=== PATIENT | male | born 1940 | race Caucasian/White ===

== ENCOUNTER 2019-12-30 14:12 | Outpatient (CLI) | payer OTHER, SELFPAY ==
--- NOTE | ~2019-12-30 | XR_ITS ---
EXAMINATION: XR lumbar spine 2-3V, XR thoracic spine 3V EXAM DATE: 12/30/2019 14:49 INDICATION: Spinal cord stimulator status. Left foot drop. TECHNIQUE: Lumber spine frontal, lateral, lateral L5-S1 projections for interpretation. Frontal and l ateral projections of the thoracic spine as well as lateral swimmers projection of the upper thoracic spine for interpretation. FINDINGS: There are 6 lumbar vertebral bodies. There is a neural stimulator with lead tips projecting up to the T7-8 interspace level. These appear intact. There is mild to moderate upper lumbar dextros coliosis. There is a screw in the L2 vertebral body. Interbody disc replacement perfusion L2-L5. Ther e is moderate disc disease T12-L1, L1-2 and L5-6. There is mild thoracic disc disease. Some bridging mid thoracic endplate osteophytes. No endplate erosive change. There is moderate lumbar facet arthrop athy. Paraspinal soft tissue is unremarkable. IMPRESSION: 1. Spine stimulator the tips at T7-8 interspace level. 2. Mild to moderate upper lumbar dextroscoliosis. 3. Six lumbar vertebral bodies. 4. Moderate lumbar spondylosis. Reviewed, dictated and finalized at location A. IMPRESSION: 1. Spine stimulator the tips at T7-8 interspace level. 2. Mild to moderate upper lumbar dextroscoliosis. 3. Six lumbar vertebral bodies. 4. Moderate lumbar spondylosis.
== END 2019-12-30 14:13 | disposition home or self-care (01) ==
LOC: CHSIMG 14:23
PROVIDERS: PCP Internal Medicine
DX: Z96.89 Presence of other specified functional implants (principal)
CPT/HCPCS: 72072; 72100

== ENCOUNTER 2020-06-23 21:29 | Emergency (ER) | payer OTHER, SELFPAY ==
--- NOTE | ~2020-06-23 | XR_ITS ---
EXAMINATION: XR chest 2V DATE: 06/23/2020 22:05 INDICATION: Left-sided midsternal chest pain TECHNIQUE: frontal and lateral views of the chest were obtained. COMPARISON: None FINDINGS: Mild hyperexpansion of lungs. There are few scattered bilateral calcified pulmonary nodules along wit h calcified right hilar and mediastinal lymph nodes consistent with old granulomatous disease. No oth er airspace opacities, pulmonary edema, pleural effusion or pneumothorax. The cardiomediastinal silho uette is normal. There is a screw extending into the L2 vertebral body. Spinal stimulator leads proje ct over the central canal of the mid thoracic spine with distal tips at the level of T8. Moderate tho racic spondylosis. Chronic mild anterior wedging at T12. IMPRESSION: 1. Mild hyperexpansion of lungs and scattered stigmata of old granulomatous disease. No acute cardiop ulmonary disease. Reviewed, dictated and finalized at location A. MBLY MACHINE TENDER IMPRESSION: 1. Mild hyperexpansion of lungs and scattered stigmata of old granulomatous dis ease. No acute cardiopulmonary disease.
--- NOTE | 2020-06-23 21:34 | ECG_ITS ---
Measurements Intervals [place] Rate: 60 P: 77 ID: [id number] QRS: -44 QRSD: 98 T: 72 QT: 398 QTc: 400 Interpretive Statements SINUS RHYTHM LEFT AXIS DEVIATION LOW QRS VOLTAGE IN PRECORDIAL LEADS INCOMPLETE RIGHT BUNDLE BRANCH BLOCK CANNOT RULE OUT SEPTAL INFARCT, AGE INDETERMINATE BASELINE ARTIFACT- I, II, III, AVR, AVF, V1-V2 ABNORMAL ECG Electronically Signed On 06-24-2020 7:06:50 VALVE MAKER by Vernon Kamara D.O.
--- NOTE | 2020-06-23 21:40 | ED.CHESTPAIN ---
HPI - Chest Pain General Chief Complaint: Chest Pain Stated Complaint: AMB Time Seen by Provider: 06/23/20 21:30 Source: patient Mode of arrival: EMS Limitations: no limitations History of Present Illness HPI narrative: 79-year-old man with a history of retention brought in today by EMS after he had a 15 minutes episodes of left-sided chest pain which was dull in nature and associated with nausea, pallor and sweating. Patient states he felt very weak and tried to get up but he was only able to lie on the floor. States discomfort as all but abated. He denies prior similar symptoms. He has had no headache, cough, sore throat, nasal congestion, fever, vomiting, diarrhea, dysuria or hematuria. records show he had a negative exercise stress test in April 2016. complaint: chest pain Onset (ago): minute(s) (45) Timing of current episode: episodic and now resolved Prior episodes: No Onset: during rest Pain location: left chest Pain radiation: back and neck Severity: severe Quality: dull Relieving factors: nothing Exacerbating factors: nothing Associated symptoms: nausea and diaphoresis Treatment prior to arrival: none Risk Factors Coronary artery disease risk factors: hypertension Related Data Home Medications Medication Instructions Recorded Confirmed methocarbamol [Robaxin-750] See Rx Instructions .ROUTE .COMPLEX 06/23/20 06/23/20 Allergies Allergy/AdvReac Type Severity Reaction Status Date / Time No Known Allergies Allergy Verified 06/23/20 21:36 Review of Systems Constitutional: Constitutional: Denies body ache(s) and Denies chills Comments: no fever Eyes: Eyes: Denies change in vision and Denies diplopia ENT: Denies otalgia, Denies nasal congestion and Denies sore throat Cardiovascular: Cardiovascular: Reports as per HPI, Reports chest pain, Denies irregular heart rhythm, Denies leg edema, Denies palpitations and Denies dyspnea on exertion Respiratory: Respiratory: Denies chest congestion, Denies cough, Denies hemoptysis and Denies dyspnea Gastrointestinal: Gastrointestinal: Denies abdominal pain, Denies melena, Denies diarrhea, Reports nausea and Denies vomiting Musculoskeletal: Musculoskeletal: Denies arthralgias and Denies joint swelling Integumentary/Breasts: Skin/Breast: Denies lesions, Denies erythema and Denies rash Neurologic: Denies syncope, Denies headache(s) and Denies focal weakness Hematologic/Lymphatic: Hematologic/Lymphatic: Denies easy bleeding and Denies easy bruising Allergic/Immunologic: Allergic/Immunologic: Denies urticaria and Denies throat swelling [facility] Past Medical History Medical History (Updated 06/23/20 @ 22:55 by Cecilio Mohr MD) Hypertension Low back pain Surgical History Surgical History (Updated 06/23/20 @ 22:55 by Cecilio Mohr MD) H/O lumbosacral spine surgery S/P insertion of spinal cord stimulator Family History Family History (Updated 04/17/16 @ 10:01 by DOCTOR UNKNOWN) Father Family history of cardiovascular disease Mother Family history of Alzheimer's disease Social History Social History (Updated 06/23/20 @ 21:51 by Cecilio Mohr MD) Smoking status: Former smoker Additional smoking assessment comments: quit 50 years ago Alcohol intake: current Drinks per week: 5 Substance use: never Living arrangements: with family Occupation/Education: retired Exam Const: General: cooperative, no acute distress, alert, awake, Physically active and acute distress mild; No ill appearing Nutritional Appearance: average body habitus Orientation/consciousness: patient oriented x3 Limitations: no limitations HENMT: Head: normal to inspection, normocephalic and atraumatic Ears: external ears normal, TM's normal bilaterally and EAC's normal General nose exam: Normal external nose present and Normal nares present Face and sinus: normal facial exam Mouth: Yes Normal oral and palatal mucosa present Throat: posteri
[2020-06-23 21:41] VITALS: BP 132/60; PULSE 68; RESP 16; TEMP 37; O2SAT 96
[2020-06-23] MEDS: ASPIRIN 81 MG CHEWABLE TABLET 324 MG PO (21:50)
[2020-06-23 21:54] LABS: Basophils Absolute Auto 0.05 K/mm3 (0.00-0.10); Basophils Percent Auto 0.9 % (0.0-1.0); Eosinophils Absolute Auto 0.08 K/mm3 (0.02-0.50); Eosinophils Percent Auto 1.5 % (1.0-6.0); Hematocrit 36.9 % (37.0-46.0); Hemoglobin 12.9 g/dL (12.4-15.3); Immature Granulocyte Absolute 0.01 K/mm3 (0.00-0.00); Immature Granulocyte Percent A 0.2 % (0.0-0.0); Lymphocytes Percent Auto 27.4 % (18.0-42.0); Mean Corpuscular Hemoglobin 33.8 pg (27.0-31.0); Mean Corpuscular Volume 96.6 fL (78.0-102.0); Mean Platelet Volume 10.1 fl (8.7-11.0); Monocytes Absolute Auto 0.56 K/mm3 (0.10-0.90); Monocytes Percent Auto 10.2 % (2.0-11.0); Neutrophils Absolute Auto 3.3 K/mm3 (1.7-7.2); Neutrophils Percent Auto 59.8 % (50.0-70.0); Platelet Count Result 202 K/mm3 (150-420); Red Blood Count 3.82 M/mm3 (4.70-6.10); Red Cell Distribution Width 12.5 % (11.6-14.4); White Blood Count 5.5 K/mm3 (4.8-10.8)
[2020-06-23 21:55] VITALS: PULSE 60
[2020-06-23 22:08] LABS: INR 0.9; Partial Thromboplastin Time 25.2 SEC (23.90-30.70); Prothrombin Time 10.4 Seconds (9.50-12.10)
[2020-06-23 22:09] LABS: BNP 49 pg/mL (0-100)
[2020-06-23 22:10] VITALS: BP 145/84; PULSE 68; RESP 16; O2SAT 97
[2020-06-23 22:14] LABS: Alanine Aminotransferase 27 U/L (16-63); Alkaline Phosphatase 57 U/L (46-116); Anion Gap 9 mmol/L (8-16); Aspartate Amino Transferase 18 U/L (15-37); Bilirubin,Total 0.3 mg/dL (0.00-1.00); Blood Urea Nitrogen 21 mg/dL (7-18); Calcium 9.6 mg/dL (8.5-10.1); Carbon Dioxide 27 mmol/L (21-32); Chloride 97 mmol/L (98-108); Estimated CRCL calculation 58 ml/min; Estimated Glomerular Filt Rate > 60; Glucose 140 mg/dL (70-99); Osmolality Calculated 281 mOsm/kg (285-295); Potassium 3.8 mmol/L (3.5-5.1); Sodium 133 mmol/L (136-145); Total Protein 6.8 g/dL (6.4-8.2)
[2020-06-23 22:34] VITALS: BP 155/87; PULSE 74; RESP 16; O2SAT 98
[2020-06-23 22:40] LABS: Troponin I 8.2 ng/L (0.00-60.4)
[2020-06-23 23:09] VITALS: BP 147/83; PULSE 61; RESP 20; TEMP 36.9; O2SAT 97
== END 2020-06-23 23:10 | disposition home or self-care (01) ==
PROVIDERS: Emergency Provider Emergency Medicine; PCP Internal Medicine
DX: R07.9 Chest pain, unspecified (principal); I10 Essential (primary) hypertension
CPT/HCPCS: 36415; 71046; 80053; 83880; 84484; 85025; 85380; 85610; 85730; 93005; 99284; A9270

== ENCOUNTER 2021-02-03 15:58 | Outpatient (CLI) | payer OTHER, SELFPAY ==
[2021-02-03 16:19] LABS: Basophils Absolute Auto 0.05 K/mm3 (0.00-0.10); Basophils Percent Auto 0.8 % (0.0-1.0); Eosinophils Absolute Auto 0.07 K/mm3 (0.02-0.50); Eosinophils Percent Auto 1.1 % (1.0-6.0); Hemoglobin 13.3 g/dL (12.4-15.3); Immature Granulocyte Absolute 0.02 K/mm3 (0.00-0.00); Immature Granulocyte Percent A 0.3 % (0.0-0.0); Lymphocytes Absolute Auto 1.25 K/mm3 (1.10-4.50); Lymphocytes Percent Auto 19.2 % (18.0-42.0); Mean Corpuscular Hemoglobin 33.3 pg (27.0-31.0); Mean Platelet Volume 10.5 fl (8.7-11.0); Monocytes Absolute Auto 0.64 K/mm3 (0.10-0.90); Monocytes Percent Auto 9.8 % (2.0-11.0); Neutrophils Absolute Auto 4.5 K/mm3 (1.7-7.2); Neutrophils Percent Auto 68.8 % (50.0-70.0); Platelet Count Result 200 K/mm3 (150-420); Red Cell Distribution Width 12.5 % (11.6-14.4); White Blood Count 6.5 K/mm3 (4.8-10.8)
[2021-02-03 16:28] LABS: CRP < 0.5 mg/dL (0.0-0.9)
[2021-02-03 17:16] LABS: Erythrocyte Sedimentation Rate 4 mm/hr (0-20)
== END 2021-02-03 15:59 | disposition home or self-care (01) ==
LOC: CHSLAB 16:03
PROVIDERS: PCP Internal Medicine
DX: Z98.890 Other specified postprocedural states (principal); Z79.2 Long term (current) use of antibiotics
CPT/HCPCS: 36415; 85025; 85652; 86140

== ENCOUNTER 2022-03-09 15:00 | Outpatient (CLI) | payer OTHER, SELFPAY ==
[2022-03-09 16:52] LABS: SARS-CoV-2 RNA PCR Positive (Negative)
== END 2022-03-09 15:01 | disposition home or self-care (01) ==
LOC: CHSLAB 15:04
PROVIDERS: PCP Internal Medicine; Visit Provider Nurse Practitioner Family
DX: U07.1 COVID-19 (principal); J06.9 Acute upper respiratory infection, unspecified
CPT/HCPCS: C9803; U0003; U0005

== ENCOUNTER 2022-06-17 05:18 | Emergency (ER) | payer OTHER, SELFPAY ==
[2022-06-17 05:33] VITALS: BP 130/90; PULSE 80; RESP 20; TEMP 37; O2SAT 96
--- NOTE | 2022-06-17 06:04 | PC.NURSE ---
encouraging fluids to get a urine sample
[2022-06-17] MEDS: CEPHALEXIN 500 MG CAPSULE PO (06:47)
--- NOTE | 2022-06-17 06:47 | ED.MALEGU ---
HPI - Male Genitourinary General Chief complaint: Urogenital-Male Stated complaint: Urinating Problems History of Present Illness HPI Narrative: Patient is 81-year-old white male with history of treated prostate cancer complains of the last month of feeling like his bladder has not completely emptied. I also complains of frequency without dysuria or hematuria. Denies any fever recent back pain. Discharge Or pain in his penis. he says he has a poor stream over the last month worse than usual. Related Data Home Medications Medication Instructions Recorded Confirmed methocarbamol 750 mg tablet See Rx Instructions .Route .COMPLEX 06/23/20 06/17/22 (Robaxin-750) lisinopril 20 mg tablet 20 mg PO DAILY 06/17/22 06/17/22 Allergies Allergy/AdvReac Type Severity Reaction Status Date / Time No Known Allergies Allergy Verified 06/23/20 21:36 Review of Systems Review of Systems: All systems reviewed & are unremarkable except as noted in HPI and below Constitutional: Constitutional: Reports no additional constitutional complaints Eyes: Eyes: Reports no additional eye complaints ENT: Reports system reviewed and no additional complaints, except as documented Cardiovascular: Cardiovascular: Reports no additional cardiovascular complaints Respiratory: Respiratory: Reports no additional respiratory complaints Gastrointestinal: Gastrointestinal: Reports no additional gastrointestinal complaints Genitourinary: Genitourinary: Reports no additional male genitourinary complaints, Reports as per HPI, Denies hematuria, Reports oliguria, Denies genital lesions, Denies dysuria, Denies penile discharge, Denies testicular pain, Reports urinary frequency and Denies urinary incontinence Musculoskeletal: Musculoskeletal: Reports no additional musculoskeletal complaints [facility] Past Medical History Medical History Hypertension Low back pain Surgical History Surgical History H/O lumbosacral spine surgery S/P insertion of spinal cord stimulator Family History Family History Father Family history of cardiovascular disease Mother Family history of Alzheimer's disease Social History Social History Smoking status: Former smoker Additional smoking assessment comments: quit 50 years ago Alcohol intake: current Drinks per week: 5 Substance use: never Exam Narrative: Patient is a elderly white male appears in no apparent distress head is normocephalic atraumatic eyes conjunctiva pink sclera nonicteric. Neck is supple no lymphadenopathy lungs are clear. Heart is regular rate and rhythm without murmurs gallops or rubs. Abdomen is soft and nontender no hepatosplenomegaly or masses his bladder does not feel distended. No CVA tenderness back is nontender. Extremities no cyanosis clubbing or edema neurological he is alert and orient x4 motor and sensory grossly intact skin is warm and dry without lesions. Course Course Emergency Course: Bladder scanner showed only 47 cc in his bladder. Patient is unable to void during his ER stay. Was discussed with the patient to go ahead today and treat him empirically for a UTI with cephalexin 500 mg 3 times a day for the next week. he was to follow up with his urologist this coming week. All questions were asked and answered and plan was discussed and agreed upon by the patient. Vital Signs Vital signs: Vital Signs Temperature 37.0 C 06/17/22 05:33 Pulse Rate 80 06/17/22 05:33 Respiratory Rate 20 06/17/22 05:33 Blood Pressure 130/90 06/17/22 05:33 Pulse Oximetry 96 06/17/22 05:33 Oxygen Delivery Room Air 06/17/22 05:33 Temperature 37.0 C 06/17/22 05:33 Pulse Rate 82 06/17/22 07:31 Respiratory Rate 18 06/17/22 07:31
[2022-06-17 07:04] LABS: Appearance Urine Clear (Clear); Bilirubin Urine Negative (Negative); Blood Urine Negative (Negative); Glucose Urine UA Negative (Negative); Ketones Urine Negative (Negative); Leukocyte Esterase Ur Negative (Negative); Nitrate Urine Negative (Negative); Protein Urine Negative (Negative); Urobilinogen Urine 0.2 mg/dL (0.2-1.0)
[2022-06-17 07:05] LABS: Add Urine Microscopic? NO; Color Urine Light Yellow (Yellow)
--- NOTE | 2022-06-17 07:21 | PC.NURSE ---
ERP having issues with computer and cannot enter discharge information. Written instructions given to Pt with Px.
[2022-06-17 07:31] VITALS: BP 132/78; PULSE 82; RESP 18; O2SAT 95
--- NOTE | 2022-06-19 13:12 | PC.NURSE ---
FINAL URINE CULTURE RESULT: NO GROWTH, NO ACTION NEEDED
== END 2022-06-17 07:33 | disposition home or self-care (01) ==
PROVIDERS: Emergency Provider Emergency Medicine; PCP Internal Medicine
DX: N39.0 Urinary tract infection, site not specified (principal); I10 Essential (primary) hypertension; Z87.891 Personal history of nicotine dependence
CPT/HCPCS: 81003; 87086; 99283; A9270

== ENCOUNTER 2023-07-20 05:28 | Emergency (ER) | payer OTHER, SELFPAY ==
--- NOTE | ~2023-07-20 | CT_ITS ---
EXAMINATION: CT abdomen pelvis wo con DATE: 07/20/2023 06:05 INDICATION: Abdominal pain. Nausea. TECHNIQUE: Computed tomography (CT) of the abdomen and pelvis was performed without intravenous contr ast. Automated exposure control and iterative reconstruction technique were employed. The dose-length product was 222.91 mGy-cm. COMPARISON: CT abdomen and pelvis 08/05/13 FINDINGS: The visualized portions of the lung bases demonstrate mild atelectasis. No pleural effusion . The heart size is normal. There are coronary artery calcifications. There is a trace pericardial ef fusion. Calcifications in the liver and spleen are consistent with old granulomatous disease. There i s a 1.7 cm cyst in the liver. The gallbladder, pancreas, adrenal glands, and kidneys are normal. Ther e is no urolithiasis. There are no dilated loops of bowel. There is a large volume of stool in the co soumya. The appendix is normal. There is calcified atherosclerosis of the aorta and many of the other ar teries. There is prominent fat in the inguinal canals that may be hernias. There is severe thoracic a nd lumbar spondylosis. There is mild chronic anterior wedging of T11 and T12 vertebral bodies. There are changes of anterior fusion procedure from L1 to L4. Thoracolumbar dextroscoliosis is noted. IMPRESSION: 1. No specific etiology for the patient's symptoms. Reviewed, dictated and finalized at location A. RATORY COURIER
--- NOTE | 2023-07-20 05:32 | ECG_ITS ---
Measurements Intervals [place] Rate: 57 P: 73 MS: 187 QRS: -47 QRSD: 98 T: 52 QT: 429 QTc: 419 Interpretive Statements SINUS BRADYCARDIA LEFT AXIS DEVIATION [QRS AXIS < -30] LOW QRS VOLTAGE IN PRECORDIAL LEADS [QRS DEFLECTION < 1.0 mV IN CHEST LEADS] POSSIBLE SEPTAL MYOCARDIAL INFARCTION , PROBABLY OLD [30 ms Q WAVE IN V1/V2] COMPARED TO ECG 06/23/2020 21:44:05 SINUS BRADYCARDIA NOW PRESENT Electronically Signed On 07-20-2023 16:25:33 MAIL WEIGHER by Dayanara Terry M.D.
--- NOTE | 2023-07-20 05:34 | ED.ABDPAIN ---
HPI - Abdominal Pain General Chief Complaint: Abdominal Pain Stated Complaint: back pain/ abd pain x 1 month Time Seen by Provider: 07/20/23 05:32 Source: patient Mode of arrival: ambulatory Limitations: no limitations History of Present Illness HPI narrative: Patient is an 82-year-old male with some mid abdominal pain which he says is diffusely around the abdomen as well as some mid back pain. MD elicited complaint: abdominal pain Pertinent past history: none Onset (ago): month(s) (1) Pain Consistency: constant Location: diffuse and epigastric Severity: mild Pain scale (0-10): 3 Quality: aching, fullness and other ( Gas like feeling) Radiation: back ( middle back) Migration to: no migration Exacerbating factors: nothing Relieving factors: nothing Associated symptoms: nausea Related Data Home Medications Medication Instructions Recorded Confirmed methocarbamol 750 mg tablet See Rx Instructions .Route .COMPLEX 06/23/20 07/20/23 (Robaxin-750) lisinopril 20 mg tablet 20 mg PO DAILY 06/17/22 07/20/23 Allergies Allergy/AdvReac Type Severity Reaction Status Date / Time No Known Allergies Allergy Verified 07/20/23 05:31 Review of Systems Review of Systems: All systems reviewed & are unremarkable except as noted in HPI and below Constitutional: Constitutional: Reports no additional constitutional complaints Eyes: Eyes: Reports no additional eye complaints ENT: Reports system reviewed and no additional complaints, except as documented Cardiovascular: Cardiovascular: Reports no additional cardiovascular complaints Respiratory: Respiratory: Reports no additional respiratory complaints Gastrointestinal: Gastrointestinal: Reports no additional gastrointestinal complaints Genitourinary: Genitourinary: Reports no additional male genitourinary complaints Musculoskeletal: Musculoskeletal: Reports no additional musculoskeletal complaints Integumentary/Breasts: Skin/Breast: Reports system reviewed and no additional complaints, except as docu Neurologic: Reports system reviewed and no additional complaints, except as documented Psychiatric: Psychiatric: Reports no additional psychiatric complaints Endocrine: Endocrine: Reports no additional endocrine complaints Hematologic/Lymphatic: Hematologic/Lymphatic: Reports no additional hematologic/lymphatic complaints Allergic/Immunologic: Allergic/Immunologic: Reports no additional allergic/immunologic complaints PMFSH Past Medical History Medical History Hypertension Low back pain Surgical History Surgical History H/O lumbosacral spine surgery S/P insertion of spinal cord stimulator Family History Family History Father Family history of cardiovascular disease Mother Family history of Alzheimer's disease Social History Social History Smoking status: Former smoker Additional smoking assessment comments: quit 50 years ago Alcohol intake: current Drinks per week: 5 Substance use: never Living arrangements: with family Occupation/Education: retired Exam Const: General: healthy appearing Nutritional Appearance: well nourished Orientation/consciousness: patient oriented x3 HENMT: Head: normal to inspection Ears: external ears normal Face/Nose/Sinus: Normal external nose present Eyes: Conjunctivae: conjunctivae normal Pupils: Equal, round and reactive pupils present EOM: EOMs intact bilaterally Neck: Neck: normal visual inspection Chest: Chest palpation & inspection: normal inspection of the chest Resp: Effort & Inspection: normal respiratory effort and not labored Auscultation: clear to auscultation bilaterally and no crackles Cardio: Rate: regular rate Rhythm: regular rhythm Heart sounds: no murmurs GI:
[2023-07-20 05:37] VITALS: BP 166/88; PULSE 55; RESP 18; TEMP 35.9; O2SAT 100
[2023-07-20 05:47] LABS: Basophils Absolute Auto 0.05 K/mm3 (0.00-0.10); Basophils Percent Auto 0.8 % (0.0-1.0); Eosinophils Absolute Auto 0.08 K/mm3 (0.02-0.50); Eosinophils Percent Auto 1.2 % (1.0-6.0); Hematocrit 41.2 % (37.0-46.0); Hemoglobin 14.1 g/dL (12.4-15.3); Immature Granulocyte Absolute 0.02 K/mm3 (0.00-0.00); Immature Granulocyte Percent A 0.3 % (0.0-0.0); Lymphocytes Absolute Auto 1.43 K/mm3 (1.10-4.50); Lymphocytes Percent Auto 21.7 % (18.0-42.0); Mean Corpuscular HGB Conc 34.2 g/dL (32.0-36.0); Mean Corpuscular Hemoglobin 33.2 pg (27.0-31.0); Mean Corpuscular Volume 96.9 fL (78.0-102.0); Mean Platelet Volume 9.6 fl (8.7-11.0); Monocytes Absolute Auto 0.67 K/mm3 (0.10-0.90); Monocytes Percent Auto 10.2 % (2.0-11.0); Neutrophils Absolute Auto 4.3 K/mm3 (1.7-7.2); Neutrophils Percent Auto 65.8 % (50.0-70.0); Platelet Count Result 221 K/mm3 (150-420); Red Blood Count 4.25 M/mm3 (4.70-6.10); Red Cell Distribution Width 12.7 % (11.6-14.4); White Blood Count 6.6 K/mm3 (4.8-10.8)
[2023-07-20 06:02] LABS: Partial Thromboplastin Time 27.9 SEC (23.90-30.70); Prothrombin Time 10.6 Seconds (9.50-12.10)
[2023-07-20 06:13] LABS: Lactic Acid Reflex 0.8 mmol/L (0.4-2.0)
[2023-07-20 06:14] LABS: Alanine Aminotransferase 26 U/L (16-63); Albumin Level 4.1 g/dL (3.4-5.0); Alkaline Phosphatase 57 U/L (46-116); Anion Gap 6 mmol/L (8-16); Aspartate Amino Transferase 21 U/L (15-37); Bilirubin,Total 0.5 mg/dL (0.00-1.00); Blood Urea Nitrogen 19 mg/dL (7-18); Calcium 9.3 mg/dL (8.5-10.1); Carbon Dioxide 31 mmol/L (21-32); Chloride 95 mmol/L (98-108); Estimated Glomerular Filt Rate > 60; Glucose 106 mg/dL (70-99); Lipase 34 U/L (16-77); NT Pro B Type Natriuretic Pept 182 pg/mL (0-450); Osmolality Calculated 276 mOsm/kg (285-295); Potassium 4.3 mmol/L (3.5-5.1); Sodium 132 mmol/L (136-145); Total Protein 6.9 g/dL (6.4-8.2); Troponin I 9.7 ng/L (0.00-60.4)
[2023-07-20 06:44] LABS: Appearance Urine Clear (Clear); Bilirubin Urine Negative (Negative); Blood Urine Negative (Negative); Color Urine Yellow (Yellow); Glucose Urine UA Negative (Negative); Ketones Urine Trace (Negative); Leukocyte Esterase Ur Negative LEU/UL (Negative); Nitrate Urine Negative (Negative); Protein Urine Negative (Negative); Urobilinogen Urine 0.2 mg/dL (0.2-1.0)
[2023-07-20 06:49] LABS: Add Urine Microscopic? YES; Bacteria Urine Rare /hpf; RBC Urine None seen /hpf (0-2); WBC Urine None seen /hpf (0-3)
== END 2023-07-20 07:03 | disposition home or self-care (01) ==
PROVIDERS: Emergency Provider Emergency Medicine; PCP Internal Medicine
DX: R10.84 Generalized abdominal pain (principal); I10 Essential (primary) hypertension; Z79.899 Other long term (current) drug therapy; Z87.891 Personal history of nicotine dependence
CPT/HCPCS: 36415; 74176; 80053; 81001; 83605; 83690; 83880; 84484; 85025; 85610; 85730; 93005; 99284

== ENCOUNTER 2024-02-23 10:55 | Emergency (ER) | payer OTHER, SELFPAY ==
[2024-02-23] VITALS (40 sets, daily range): BP systolic 95–136; BP diastolic 66–110; PULSE 73–145; RESP 16–27; TEMP 36.4–36.6; O2SAT 93–100
--- NOTE | ~2024-02-23 | XR_ITS ---
EXAMINATION: XR chest 1V portable DATE: 02/23/2024 11:26 INDICATION: Lightheadedness. Atrial fibrillation. TECHNIQUE: A single frontal view of the chest was obtained. COMPARISON: Chest 2 views 06/23/2020, CT abdomen and pelvis 07/20/2023 FINDINGS: Calcified pulmonary nodules and calcified hilar and mediastinal lymph nodes are consistent with old granulomatous disease. There is mild atelectasis at left lung base. No pleural effusion or p neumothorax. The heart size is normal. IMPRESSION: 1. Mild atelectasis at left lung base. Reviewed, dictated and finalized at location A.
--- NOTE | 2024-02-23 11:02 | ED.DIZZY ---
HPI - Dizziness General Chief Complaint: Dizziness Stated Complaint: light headed, nausea Time Seen by Provider: 02/23/24 11:02 Source: patient Mode of arrival: ambulatory Limitations: no limitations History of Present Illness HPI Narrative: 83-year-old male with a history of chronic low back pain presents to the ED with a 2 hour history of\ -- dizziness. he feels lightheaded. No focal neuro deficits. -- Shortness of breath. No cough or sputum production. No fever Negative stress test in 2016. MD elicited complaint: lightheadedness Onset (ago): hour(s) ( 2 hours) Timing: sudden onset Severity: mild Description: lightheadedness Exacerbating factors: nothing Relieving factors: nothing Associated symptoms: shortness of breath Related Data Home Medications Medication Instructions Recorded Confirmed lisinopril 20 mg tablet 20 mg PO DAILY 06/17/22 02/23/24 Allergies Allergy/AdvReac Type Severity Reaction Status Date / Time No Known Allergies Allergy Verified 02/23/24 10:56 Review of Systems Review of Systems: All systems reviewed & are unremarkable except as noted in HPI and below Constitutional: Constitutional: Reports as per HPI and Reports no additional constitutional complaints Eyes: Eyes: Reports as per HPI and Reports no additional eye complaints ENT: Reports system reviewed and no additional complaints, except as documented and Reports as per HPI Cardiovascular: Cardiovascular: Reports as per HPI and Reports no additional cardiovascular complaints Respiratory: Respiratory: Reports as per HPI, Reports no additional respiratory complaints and Reports dyspnea Gastrointestinal: Gastrointestinal: Reports as per HPI and Reports no additional gastrointestinal complaints Genitourinary: Genitourinary: Reports no additional male genitourinary complaints Musculoskeletal: Musculoskeletal: Reports no additional musculoskeletal complaints and Reports as per HPI Integumentary/Breasts: Skin/Breast: Reports system reviewed and no additional complaints, except as docu and Reports as per HPI Neurologic: Reports system reviewed and no additional complaints, except as documented, Reports as per HPI and Reports dizziness Psychiatric: Psychiatric: Reports no additional psychiatric complaints and Reports as per HPI Endocrine: Endocrine: Reports no additional endocrine complaints and Reports as per HPI Hematologic/Lymphatic: Hematologic/Lymphatic: Reports no additional hematologic/lymphatic complaints and Reports as per HPI Allergic/Immunologic: Allergic/Immunologic: Reports no additional allergic/immunologic complaints and Reports as per HPI [facility] Past Medical History Medical History Hypertension Low back pain Surgical History Surgical History H/O lumbosacral spine surgery S/P insertion of spinal cord stimulator Family History Family History Father Family history of cardiovascular disease Mother Family history of Alzheimer's disease Social History Social History Smoking status: Former smoker Additional smoking assessment comments: quit 50 years ago Alcohol intake: current Drinks per week: 5 Substance use: never Living arrangements: with family Occupation/Education: retired Exam Narrative: tachycardic with a heart rate of 140. Blood pressure is stable Const: General: no acute distress Nutritional Appearance: thin Orientation/consciousness: patient oriented x3 Limitations: no limitations HENMT: Head: normal to inspection Face/Nose/Sinus: Normal external nose present Face and sinus: normal facial exam Mouth: Yes Normal oral and palatal mucosa present Throat: posterior oropharynx normal Eyes: Conjunctivae: conjunctivae normal Pupils: Equal, round a
--- NOTE | 2024-02-23 11:22 | ECG_ITS ---
Test Date: 2024-02-23 11:35:16 Measurements Intervals [place] Rate: 81 P: 0 [place]: 0 QRS: -56 QRSD: 93 T: 56 QT: 374 QTc: 437 Interpretive Statements ATRIAL FIBRILLATION LOW QRS VOLTAGE IN PRECORDIAL LEADS [QRS DEFLECTION < 1.0 mV IN CHEST LEADS] INCOMPLETE RIGHT BUNDLE BRANCH BLOCK [90+ ms QRS DURATION, TERMINAL R IN V1/V2, 40+ ms S IN I/aVL/V4/V5/V6] LEFTWARD AXIS ABNORMAL ECG No previous ECG available for comparison Electronically Signed On 02-24-2024 09:11:21 CDT by Mckay Liang M.D.
[2024-02-23] MEDS: dilTIAZem HCl INJ 25 MG/5 ML VIAL 10 MG IV PUSH (11:28)
[2024-02-23 12:20] LABS: Basophils Absolute Auto 0.05 K/mm3 (0.00-0.10); Basophils Percent Auto 0.7 % (0.0-1.0); Eosinophils Absolute Auto 0.05 K/mm3 (0.02-0.50); Eosinophils Percent Auto 0.7 % (1.0-6.0); Hematocrit 41.3 % (37.0-46.0); Immature Granulocyte Absolute 0.02 K/mm3 (0.00-0.00); Immature Granulocyte Percent A 0.3 % (0.0-0.0); Lymphocytes Absolute Auto 0.92 K/mm3 (1.10-4.50); Lymphocytes Percent Auto 13.5 % (18.0-42.0); Mean Corpuscular HGB Conc 33.9 g/dL (32-36); Mean Corpuscular Hemoglobin 32.3 pg (27.0-31.0); Mean Corpuscular Volume 95.2 fL (78.0-102.0); Mean Platelet Volume 10.8 fl (8.7-11.0); Monocytes Absolute Auto 0.62 K/mm3 (0.10-0.90); Monocytes Percent Auto 9.1 % (2.0-11.0); Neutrophils Absolute Auto 5.15 K/mm3 (1.70-7.20); Neutrophils Percent Auto 75.7 % (50.0-70.0); Platelet Count Result 214 K/mm3 (150-420); Red Blood Count 4.34 M/mm3 (4.70-6.10); Red Cell Distribution Width 13.3 % (11.6-14.4); White Blood Count 6.8 K/mm3 (4.8-10.8)
[2024-02-23 12:35] LABS: Lactic Acid Reflex 1.5 mmol/L (0.4-2.0)
[2024-02-23 12:37] LABS: D Dimer 0.23 mg/L (0.19-0.50); INR 0.9; Partial Thromboplastin Time 26.2 Sec (23.9-30.70); Prothrombin Time 10.4 Seconds (9.50-12.1)
[2024-02-23 12:38] LABS: Alanine Aminotransferase 15 U/L (16-63); Albumin Level 3.7 g/dL (3.4-5.0); Alkaline Phosphatase 54 U/L (46-116); Anion Gap 10 mmol/L (4-12); Aspartate Amino Transferase 19 U/L (15-37); Bilirubin,Total 0.4 mg/dL (0.00-1.00); Blood Urea Nitrogen 19 mg/dL (7-18); Calcium 9.2 mg/dL (8.5-10.1); Carbon Dioxide 27 mmol/L (21-32); Chloride 99 mmol/L (98-108); Estimated CRCL calculation 54 ml/min; Estimated Glomerular Filt Rate > 60; Glucose 123 mg/dL (70-99); Lipase 41 U/L (16-77); NT Pro B Type Natriuretic Pept 423 pg/mL (0-450); Osmolality Calculated 285 mOsm/kg (285-295); Potassium 3.9 mmol/L (3.5-5.1); Sodium 136 mmol/L (136-145); Thyroid Stimulating Hormone 1.66 uIU/mL (0.36-3.74); Total Protein 6.7 g/dL (6.4-8.2); Troponin I 18.6 ng/L (0.00-60.4)
[2024-02-23 12:41] LABS: Bilirubin Urine Negative (Negative); Blood Urine Negative (Negative); Color Urine Light Yellow (Yellow); Glucose Urine UA Negative (Negative); Ketones Urine Negative (Negative); Leukocyte Esterase Ur Negative LEU/UL (Negative); Nitrate Urine Negative (Negative); Protein Urine Negative (Negative); Specific Grav Ur 1.015 (1.010-1.020); Urobilinogen Urine 0.2 mg/dL (0.2-1.0)
[2024-02-23 12:45] LABS: Add Urine Microscopic? NO; Appearance Urine Clear (Clear)
[2024-02-23 13:11] LABS: Influenza A QL RT-PCR Negative (Negative); Influenza B QL RT-PCR Negative (Negative); RSV RNA, RT-PCR Negative (Negative); SARS-CoV-2 RNA PCR Negative (Negative)
[2024-02-23] MEDS: AMIODARONE 150 MG/D5W 100 ML 150 MG/100 ML BAG 600 MG IV CONT (13:23)
== END 2024-02-23 15:00 | disposition short-term general hospital (02) ==
PROVIDERS: Emergency Provider Internal Medicine Critical Care Medicine; PCP Internal Medicine
DX: I48.91 Unspecified atrial fibrillation (principal); I10 Essential (primary) hypertension; Z87.891 Personal history of nicotine dependence; Z20.822 Contact with and (suspected) exposure to COVID-19
CPT/HCPCS: 36415; 71045; 80053; 81003; 83605; 83690; 83880; 84443; 84484; 85025; 85380; 85610; 85730; 87637; 93005; 96374; 96375; 99285; J0282

== ENCOUNTER 2024-02-23 15:30 | Observation (INO) | payer OTHER, SELFPAY ==
[2024-02-23] VITALS (7 sets, daily range): BP systolic 119–120; BP diastolic 56–57; PULSE 53–106; RESP 16–20; TEMP 36.3–37; O2SAT 98–99; BMI 20.5
--- NOTE | 2024-02-23 15:43 | ADMGEN ---
This patient, Mitch Stockton, was admitted to IMU Room 212-01. Patient/family oriented to hospital policies and general routines including ID bracelet, bed and alarms, visiting hours, pain management, procedures, bathroom and other care routines, personal items, smoking policy, room service/diet, and visiting hours. Information on how to activate the Rapid Response Team has been discussed. Patient/Family are encouraged to report perceived risks to care and to ask questions if they do not understand what they are told or what they should do.
--- NOTE | 2024-02-23 16:07 | ECG_ITS ---
Test Date: 2024-02-23 17:24:05 Measurements Intervals [place] Rate: 56 P: 60 OK: 202 QRS: -54 QRSD: 93 T: 57 QT: 406 QTc: 394 Interpretive Statements SINUS BRADYCARDIA INCOMPLETE RIGHT BUNDLE BRANCH BLOCK [90+ ms QRS DURATION, TERMINAL R IN V1/V2, 40+ ms S IN I/aVL/V4/V5/V6] LEFT ANTERIOR FASCICULAR BLOCK [QRS AXIS <= -45, QR IN I, RS IN II] ABNORMAL ECG WARNING: DATA QUALITY MAY AFFECT INTERPRETATION Compared to ECG 02/23/2024 11:35:16 SINUS RHYTHM REPLACES ATRIAL FIBRILLATION Electronically Signed On 02-24-2024 08:58:22 CDT by Mckay Liang M.D.
--- NOTE | 2024-02-23 17:26 | PM.IMHP ---
H&P: HPI History of Present Illness Date/Time: 02/23/24 17:26 Chief Complaint: New onset AFib Narrative: 83-year-old male with a PMHx: HTN, chronic back pain, is a direct admit from [facility]. Patient presented to OT with c/o, an episode of dizziness and weakness lasting for more than 2 hours, patient reports he was with family when he experienced an episode of where he felt lightheaded and dizziness, he describes his dizziness as the room was spinning, with mild sob, he denies any balance issues or falls, he is able to recall the event. He denies any fever, chills, n/v. Mr Stockton denies any chest pain associated with this episode. He admits he has HTN but has not taken medication for it, due to low blood pressure readings. He also reports a remote hx of thyroid issues and medication use, that has since been discontinued because he was told by his dr. that his numbers improved and he no longer needed medication. He admits he has not seen a pai gow manager since 2016, when he had a stress test completed that was negative. ED Work-up reveals: 97.5, HR 124, RR 22, BP 114/92, SpO2 97%, UA is unremarkable, viral PCR is negative, initially patient was given 10 mg Cardizem, rate not controlled his heart rate continued in the 140s-150s, then patient was given 150 mg amiodarone bolus, rate was controlled, patient still in atrial fibrillation. Chest x-ray revealed mild atelectasis at left lung base. EKG, atrial fibrillation [facility] Past Medical History Medical History Hypertension Low back pain Surgical History Surgical History H/O lumbosacral spine surgery S/P insertion of spinal cord stimulator Family History Family History Father Family history of cardiovascular disease Mother Family history of Alzheimer's disease Social History Social History Smoking packs per day: 1 Smoking cigarettes per day: 20.0 Years smoked: 10 Smoking pack-years: 10.00 Smoking status: Former smoker Additional smoking assessment comments: quit 50 years ago Alcohol intake: current Drinks per week: 4 Substance use: never Do You Feel Safe in your Home?: No Lack of Transportation: No Lack of Food: Never True Current Housing: I Have Housing Concerned About Future Housing: No Difficulty Paying Gas/Electric Bills: No Difficulty Paying for Meds: No Currently Unemployed: No Education: High School Diploma/GED Difficulty w/ Childcare or Family Care: No Living arrangements: with family Occupation/Education: retired Spiritual care concerns: No Meds Home Medications and Allergies Home Medications Medication Instructions Recorded Confirmed Type acetaminophen 500 mg tablet 500 mg PO Q6H PRN Pain (Scale 02/23/24 02/23/24 History Score 1-3) coQ10 (ubiquinol) 100 mg capsule 100 mg PO DAILY 02/23/24 02/23/24 History multivit with minerals-iron 18 1 tablet PO DAILY 02/23/24 02/23/24 History mg-folic ac 400 mcg-vit K 25 mcg tablet (Adults Multivitamin) Allergies Allergy/AdvReac Type Severity Reaction Status Date / Time No Known Allergies Allergy Verified 02/23/24 10:56 Vital Signs Vital Signs - 24 hr 02/23/24 15:45 02/23/24 15:51 Temperature 98.6 F Pulse Rate 90 Respiratory Rate 16 Blood Pressure 119/56 L Pulse Oximetry 99 Oxygen Delivery Room Air Exam Narrative: General: A well-developed, nontoxic-appearing gentlemen, sitting up in bed. HEENT: PERRL, EOMI. Oral mucosa moist. Neck: Supple. No midline cervical tenderness. Respiratory: Respirations are non- labored and lungs are clear to auscultation bilaterally. Cardiovascular: Regular rate and rhythm with S1-S2. Gastrointestinal: Abdomen is soft, non-tender, and non-distended with
[2024-02-23 18:42] LABS: Troponin I 0.029 ng/mL (0.000-0.034)
--- NOTE | 2024-02-23 18:55 | PC.NURSE ---
Pt. received from [facility] at 1853 via wheelchair.
--- NOTE | 2024-02-23 19:01 | PC.NURSE ---
This patient, Mitch Stockton, was transferred to [[id number] ] on 02/23/24 at 1855. Personal belongings sent with patient. Report given to [RN ]. Appropriate documentation sent with patient.
[2024-02-24] VITALS (14 sets, daily range): BP systolic 108–169; BP diastolic 49–77; PULSE 45–78; RESP 16–20; TEMP 36–36.4; O2SAT 94–99
[2024-02-24] MEDS: ACETAMINOPHEN 500 MG TABLET PO (02:57)
[2024-02-24 06:22] LABS: Alanine Aminotransferase 15 U/L (6-50); Albumin Level 3.6 g/dL (3.5-5.1); Alkaline Phosphatase 40 U/L (38-126); Anion Gap 7 mmol/L (4-12); Aspartate Amino Transferase 24 U/L (17-59); Bilirubin,Total 0.4 mg/dL (0.2-1.3); Blood Urea Nitrogen 20 mg/dL (9-20); Carbon Dioxide 23 mmol/L (22-30); Chloride 102 mmol/L (98-107); Cholesterol 153 mg/dL (0-200); Estimated CRCL calculation 70 ml/min; Estimated Glomerular Filt Rate > 60; Glucose 93 mg/dL (65-110); HDL Direct 57 mg/dL; Potassium 3.7 mmol/L (3.4-5.0); Sodium 132 mmol/L (137-145); Triglycerides 93 mg/dL (<150)
[2024-02-24 06:32] LABS: LDL Cholesterol Direct 71 mg/dL
--- NOTE | 2024-02-24 13:49 | WPDPN ---
Progress Note: A&P Assessment and Plan (1) New onset a-fib: Code(s): I48.91 - Unspecified atrial fibrillation Status: Inactive Assessment and Plan: -given 10 mg Cardizem, with no improvement -received 150 mg amiodarone bolus -arrive to [place] patient converted to normal sinus rhythm with a rate of 59-60 -troponin negative -downgrade to med-tele -repeat EKG PRN for any chest pain or SOB, dizziness -continue telemetry monitoring -monitor vitals q4 hr -check echocardiogram in the a.m. or when available -start metoprolol 12.5 p.o. q.12 (b/p) on lower side, change to sustained release prior to discharge -start Xarelto CHADS2=2 -may consider cardiovascular consult pending echocardiogram results (2) Hypertension: Code(s): I10 - Essential (primary) hypertension Status: Acute Assessment and Plan: -remote hx -pt reports not taking lisinopril for >2 years -continue to monitor b/p: q.4 hours Plan Continue home medications: No home medications reported VTE Prophylaxis: Xarelto p.o. DIET: Heart healthy Anticipated hospital stay: > 2 days Code Status: Full code 02/24/2024 interval history: patient is 83 y/o male with dementia and poor historian who apparently has not been taking his medication for sometime presented to outside hospital ER with complaints of dizziness and was found to have A. fib RVR, no details weather this is new onset or recurrent. patient was initially treated with 10 mg of Cardizem which did not improve the rate so patient was given 150mg of Amiodarone which did not convert the patient but trended down, currently patient is on Metoprolol 12.5mg BID PO and rate is in low 50s, and anti coagulated with xarelto, patient stats he is feeling better and wants to go home. will monitor patient, follow up on cardiac echo and consult wagon driver for further recommendation. Subjective Date/time seen: 02/24/24 13:49 Interval history: 02/24/2024 interval history: patient is 83 y/o male with dementia and poor historian who apparently has not been taking his medication for sometime presented to outside hospital ER with complaints of dizziness and was found to have A. fib RVR, no details weather this is new onset or recurrent. patient was initially treated with 10 mg of Cardizem which did not improve the rate so patient was given 150mg of Amiodarone which did not convert the patient but trended down, currently patient is on Metoprolol 12.5mg BID PO and rate is in low 50s, and anti coagulated with xarelto, patient stats he is feeling better and wants to go home. will monitor patient, follow up on cardiac echo and consult wagon driver for further recommendation. Review of Systems Constitutional: Constitutional: Reports no additional constitutional complaints Exam Narrative: Elderly frail Patient is comfortable, NAD HEENT: eyes are clear and none icteric LUNGS:CTA HEART: Irregularly irregular ABD: BS+, Soft and nontender Lower extremities: no edema SKIN: nonjaundiced Neuro: grossly intact. Objective Data Vital Signs Vital Signs: Vital Signs - 24 hr 02/23/24 15:45 02/23/24 15:51 02/23/24 15:44 Temperature 37.0 C Pulse Rate 90 106 H Respiratory Rate 16 Blood Pressure 119/56 L Pulse Oximetry 99 Oxygen Delivery Room Air 02/23/24 16:00 02/23/24 16:05 02/23/24 20:52 Temperature 36.3 C L Pulse Rate 105 H 75 56 L Respiratory Rate 20 Blood Pressure 120/57 L Pulse Oximetry 98 Oxygen Delivery 02/23/24 20:00 02/23/24 23:12 02/23/24 20:00 Temperature Pulse Rate 53 L 59 L Respiratory Rate Blood Pressure Pulse Oximetry Oxygen Delivery Room Air 02/24/24 00:00 02/24/24 04:00 02/24/24 05:57 Temperature 36.0 C L Pulse Rate 46 L 45 L 51 L Respiratory Rate 16 Blood Pressure 108/49 L Pulse Oximetry 94 Oxygen Delivery 02/24/24 09:29 Temperature Pulse Rate 52 L Respiratory Rate Blood Pressure Pulse Oxi
--- NOTE | 2024-02-24 13:51 | PM.CNCAR ---
Assessment and Plan Assessment and plan (1) Atrial fibrillation: Code(s): I48.91 - Unspecified atrial fibrillation Status: Acute Plan This is an 83-year-old man presenting with asymptomatic atrial fibrillation of new onset to the emergency room up in [place] last evening. He was converted to sinus rhythm with a bolus of amiodarone and since then has been asymptomatic. No previous cardiac history that he provides. No history of coronary disease and previous infarction. Discussed with the patient the need to discuss medication for his atrial fibrillation as well as anticoagulation. I will start Xarelto 20 mg daily as well as flecainide. I am choosing flecainide as he tends to be a bit bradycardic when in sinus rhythm and I suspect that a beta-evelina such as sotalol would not be well tolerated. An echocardiogram has already been appropriately ordered by the hospitalist. As you know the boarding machine operator is not in the hospital on Sunday and so that scan will not be done until tomorrow. We will review how he is doing tomorrow and his echo results and hopefully he can be discharged for outpatient follow-up at that time Mckay Liang MD [facility] History of Present Illness History of Present Illness Consult date/time: 02/24/24 13:51 Reason For Visit: a fib with rvr Narrative: This is an 83-year-old man I am seeing with the request of the hospitalist because of atrial fibrillation. Patient is unknown to me prior to this consultation today. Is a very pleasant gentleman who states he has a paucity of general medical problems. He came to the emergency room in [place] last evening because of the onset of palpitations at home a short time before that. He noticed the onset of tachycardia and erratically beating of his heart. He has a blood pressure cuff that he was using and states that his pulse rate was at times as fast as 150 beats per minute and so he became concerned and went to the emergency department. In the ED at says he was found to be in AFib with RVR. According to the notes it looks like he was given some intravenous diltiazem and then some intravenous amiodarone in a loading dose of 150 mg was given after which he converted to sinus rhythm and became asymptomatic. He was transferred [facility] for further evaluation management. He is resting comfortably in his bed in room 329 and offers no other complaints. A gentleman that says a than at his advanced age he leads a fairly active lifestyle caring for his own home. He is and does not have any exertional symptoms such as shortness of breath chest pain he has never had a syncopal episode. The patient states that he had been told in the past that he had some sort of thyroid function abnormality and for a while was on medication for that which was withdrawn by his physician. I do not have any records that speak to any of that per my personal review at this time. Review of Systems Constitutional: Constitutional: Reports no additional constitutional complaints Eyes: Eyes: Reports no additional eye complaints ENT: Reports system reviewed and no additional complaints, except as documented Cardiovascular: Cardiovascular: Reports palpitations Respiratory: Respiratory: Reports no additional respiratory complaints Gastrointestinal: Gastrointestinal: Reports no additional gastrointestinal complaints Musculoskeletal: Musculoskeletal: Reports no additional musculoskeletal complaints Integumentary/Breasts: Skin/Breast: Reports system reviewed and no additional complaints, except as docu Neurologic: Reports system reviewed and no additional complaints, except as documented Endocrine: Endocrine: Reports no additional endocrine complaints Hematologic/Lymphatic: Hematologic/Lymphatic: Reports no additional hematologic/lymphatic complaints Allergic/Immunologic: Allergic/Immunologic: Reports no additional allergic/immunologic complaints PMFSH Past Medical Histor
[2024-02-24] MEDS: RIVAROXABAN 20 MG TABLET PO (17:54)
[2024-02-24] MEDS: FLECAINIDE ACETATE 100 MG TABLET PO (20:36)
[2024-02-24] MEDS: METOPROLOL TARTRATE 12.5 MG TABLET PO (20:36)
[2024-02-25] VITALS (11 sets, daily range): BP systolic 122–150; BP diastolic 51–70; PULSE 44–59; RESP 16–20; TEMP 36.4–36.6; O2SAT 96–98
[2024-02-25 05:59] LABS: Hematocrit 37.2 % (42.0-52.0); Mean Corpuscular HGB Conc 34.9 g/dl (32-36); Mean Corpuscular Volume 97.4 fl (80-100); Mean Platelet Volume 10.7 fl (7.4-10.4); Platelet Count Result 193 k/mm3 (150-375); Red Blood Count 3.82 M/mm3 (4.6-6.20); Red Cell Distribution Width 13.4 % (11.5-14.5); White Blood Count 6.3 K/mm3 (4.5-10.0)
[2024-02-25 06:12] LABS: Alanine Aminotransferase 16 U/L (6-50); Albumin Level 3.8 g/dL (3.5-5.1); Alkaline Phosphatase 44 U/L (38-126); Anion Gap 9 mmol/L (4-12); Aspartate Amino Transferase 26 U/L (17-59); Bilirubin,Total 0.5 mg/dL (0.2-1.3); Blood Urea Nitrogen 15 mg/dL (9-20); Carbon Dioxide 23 mmol/L (22-30); Chloride 99 mmol/L (98-107); Estimated CRCL calculation 69 ml/min; Estimated Glomerular Filt Rate > 60; Glucose 87 mg/dL (65-110); Magnesium 1.8 mg/dL (1.6-2.3); Potassium 3.8 mmol/L (3.4-5.0); Sodium 131 mmol/L (137-145)
--- NOTE | 2024-02-25 11:42 | PCPTNOTE ---
On 02/25/24, the student, [Neha Merida], provided care and completed [facility] documentation on this patient. I have reviewed the student's documentation and agree with the findings.
--- NOTE | 2024-02-25 14:39 | PM.PNCARD ---
Progress Note: A&P Assessment and Plan (1) Atrial fibrillation: Code(s): I48.91 - Unspecified atrial fibrillation Status: Acute Plan 83-year-old man with paroxysmal atrial fibrillation been started on flecainide and Xarelto yesterday. He is maintaining sinus rhythm. He does tend to be bradycardic. His echocardiogram does not show any significant structural abnormalities. I am going to stop the low-dose metoprolol because of the bradycardia reduce the flecainide 50 mg q.12 hours. He can be discharged today from my perspective. I will see him in the office for about 1 month follow-up. Patient wishes to see me in my [place] location, I will make those arrangements Mckay Liang MD [facility] Subjective Date/time seen: Date of service: 02/25/24 14:39 Interval history: Follow-up visit in this 83-year-old man with atrial fibrillation of new onset. Patient converted to sinus rhythm after being treated in the ER. Started on flecainide and Xarelto yesterday. Today he feels well and offers no complaints. Hoping to be discharged. Telemetry shows sinus bradycardia. Exam Const: General: comfortable and no acute distress Other: Pleasant elderly man no distress HENMT: Mouth: Yes moist mucous membranes Eyes: Sclera: sclerae normal Neck: Neck: supple and no JVD Resp: Effort & Inspection: normal respiratory effort Auscultation: clear to auscultation bilaterally Cardio: Rate: bradycardic Rhythm: regular rhythm GI: GI Palp: Yes Soft to palpation Auscultation: normal bowel sounds Skin: General skin exam: normal color Neuro: Other: Alert and oriented times Extrem: General: normal to inspection Other: Unremarkable Objective Data Vital Signs Vital Signs: Vital Signs - 24 hr 02/24/24 16:00 02/24/24 20:36 02/24/24 20:36 Temperature Pulse Rate 58 L 56 L 56 L Respiratory Rate Blood Pressure Pulse Oximetry Oxygen Delivery 02/24/24 21:07 02/24/24 20:00 02/25/24 00:00 Temperature 36.4 C Pulse Rate 62 57 L 47 L Respiratory Rate 20 Blood Pressure 169/77 H Pulse Oximetry 98 Oxygen Delivery 02/25/24 04:00 02/25/24 05:50 02/25/24 08:55 Temperature 36.4 C L Pulse Rate 44 L 54 L Respiratory Rate 18 Blood Pressure 122/51 L Pulse Oximetry 98 Oxygen Delivery Room Air 02/25/24 09:36 02/25/24 09:37 02/25/24 10:25 Temperature 36.6 C Pulse Rate 50 L 50 L 50 L Respiratory Rate 16 Blood Pressure 150/60 H Pulse Oximetry 98 Oxygen Delivery 02/25/24 10:26 02/25/24 10:26 02/25/24 14:00 Temperature 36.6 C 36.6 C 36.5 C Pulse Rate 52 L 59 L 57 L Respiratory Rate 16 16 20 Blood Pressure 133/70 146/64 H 145/69 H Pulse Oximetry 98 97 96 Oxygen Delivery Intake/Output Intake/Output: Intake & Output 02/22/24 02/23/24 02/24/24 02/25/24 23:59 23:59 23:59 23:59 Intake Total 838 370 Balance 838 370 Meds/Results Medications: Active Medications Generic Name Dose Route Start Last Admin Trade Name Freq PRN Reason Stop Dose Admin Acetaminophen 500 mg 02/23/24 16:17 02/24/24 02:57 Acetaminophen 500 Mg Tablet PO 500 mg Q6H PRN Administration Pain (Scale Score 1-3) Perflutren Lipid Microsphere 0 ml 02/23/24 19:39 Perflutren Lipid Microspheres 1.5 Ml Vial Diluted To 10 Ml Total Volume IV PUSH 02/26/24 19:39 ONCE PRN adequate visualization Protocol Rivaroxaban 20 mg 02/24/24 17:00 02/24/24 17:54 Rivaroxaban 20 Mg Tablet PO 20 mg DAILY@1700 LOGAN Administration Labs Labs: Laboratory Results - last 24 hr 02/25/24 05:29 WBC 6.3 RBC 3.82 L Hgb 13.0 L Hct 37.2 L MCV 97.4 MCH 34.0 MCHC 34.9 RDW 13.4 Plt Count 193 MPV 10.7 H Sodium 131 L Potassium 3.8 Chloride 99 Carbon Dioxide 23 Anion Gap 9 BUN 15 D Creatinine 0.60 L Estim Creat Clear Calc 69 Estimated GFR > 60 Glucose 87 Calcium 9.0 Magnesium 1.8 Total Biliru
--- NOTE | 2024-02-25 15:51 | PM.DS ---
DS: Admitting Diagnosis Discharge Date 02/25/2024 Admitting Diagnosis Chest discomfort DS: Discharge Diagnosis Discharge Diagnosis (1) New onset a-fib: Code(s): I48.91 - Unspecified atrial fibrillation Status: Acute Assessment and Plan: - Converted to SR in ER. - Seen by rental management trainee. - Started on Xarelto and Flecainide per cardiology. - 2-D ECHO with no clots or structural abnormalities. - Episodes of bradycardia and BB discontinued. - Educated on Xarelto risks, including high-risk for bleeding. - F/u with rental management trainee as scheduled. (2) Hypertension: Code(s): I10 - Essential (primary) hypertension Status: Acute Assessment and Plan: -Remote hx. -Pt reports not taking lisinopril for >2 years. -Continue to monitor closely outpatient. Plan . DS: Summary Hospital Course Reason for hospitalization: # A-Fib, New Onset: # Chest Discomfort: Hospital Course: 02/24/2024 interval history: Patient with dementia and poor historian apparently has not been taking his medication for sometime. Patient presented to outside hospital ER with complaints of chest discomfort and dizziness and was found to have A. fib RVR. Patient denies previous Hx of A-Fib and states he has heard about it but never had the disease before. Patient was initially treated with 10 mg of Cardizem which did not improve the rate so he was given 150mg of Amiodarone, briefly thereafter patient converting back to SR. Patient was started on Metoprolol 12.5mg BID PO inpatient, which was discontinued prior to admission due to the patient's bradycardia in mid 40's- to low 50's. He was started on xarelto for anticoagulation. Patient had a 2-D ECHO done that did not reveal any clots or structural abnormalities. Patient states he is feeling much better and wants to go home. Patient was seen by the Access Rep inpatient and has been cleared for discharge, to f/u with the rental management trainee outpatient. Patient is medically stable with no acute cardiopulmonary or other symptoms reported on observed prior to discharge. Status at Discharge Functional status at discharge: independent ambulation Time Spent with Patient Time attestation: Total time spent providing and/or coordinating discharge services: Time spent: Greater than 30 minutes Exam Narrative: General:Elderly, comfortable with no acute distress. HEENT: Atraumatic, PERRL, EOMI, none icteric LUNGS:CTA. HEART: RRR ABD: BS+, Soft and nontender Lower extremities: no edema SKIN: nonjaundiced Neuro: grossly intact. Cranial nerves II-XII grossly intact. DS: Data Data Completed and Pending Labs on day of discharge: Labs from last 24 hours 02/25/24 05:29 WBC 6.3 RBC 3.82 L Hgb 13.0 L Hct 37.2 L MCV 97.4 MCH 34.0 MCHC 34.9 RDW 13.4 Plt Count 193 MPV 10.7 H Sodium 131 L Potassium 3.8 Chloride 99 Carbon Dioxide 23 Anion Gap 9 BUN 15 D Creatinine 0.60 L Estim Creat Clear Calc 69 Estimated GFR > 60 Glucose 87 Calcium 9.0 Magnesium 1.8 Total Bilirubin 0.5 AST 26 ALT 16 Alkaline Phosphatase 44 Total Protein 6.0 L Albumin 3.8 Discharge Plan Discharge Attending physician on discharge: Preet Oakley Consulting providers: Mckay Liang; Kimberly Castillo Discharging Clinician: Kimberly Castillo Anticipated Discharge Date/Time: 02/25/24 16:18 Patient Disposition: Home, Self-Care Activity: as tolerated Diet: heart healthy Patient Instructions: Antibiotic Form, Rivaroxaban (By mouth) Stand Alone Forms: General Discharge Information Follow-up/Referrals: Mckay Liang MD [Physician] - Call for Appointment Discharge Medications: New Xarelto 20 mg Tablet 20 mg PO DAILY@1700 Qty: 30 0RF flecainide 50 mg Tablet 50 mg PO Q12HR Qty: 60 0RF Continued acetaminophen 500 mg Tablet 500 mg PO Q6H PRN (Reason: Pain (Scale Score 1-3)) coQ10 (ubiquinol) 100 mg Capsule 100 m
[2024-02-25] MEDS: RIVAROXABAN 20 MG TABLET PO (16:36)
--- NOTE | 2024-02-25 19:39 | ECHO_ITS ---
Patient Info Name: Mitch Stockton Age: 83 years : 1940 Gender: Male Ht: 70 in Wt: 143 lbs BSA: 1.78 m2 HR: 54 bpm BP: 122 / 51 mmHg Heart Rhythm: Sinus Rhythm Technical Quality: Good Exam Date: 02/25/2024 11:46 AM Exam Location: Echo Lab Patient Status: Outpatient Admit Date: 02/23/2024 Staff Ordering Physician: Alesha Wright APRN Director Employee Communications: Corey Philippe RDCS Attending Provider: Preet Oakley MD Referring Physician: Kyle LANDIS; Exam Type: CA echo doppler color flow Study Info Indications - DIZZINESS, NEW ONSET A FIB Complete two-dimensional, color flow and Doppler transthoracic echocardiogram is performed. Summary 1. Complete two-dimensional, color flow and Doppler transthoracic echocardiogram is performed. 2. Mild concentric left ventricular hypertrophy with preserved systolic contractility. 3. Mildly sclerotic aortic valve with trivial aortic regurgitation. 4. Modest left atrial enlarged. 5. Sinus rhythm. Left Ventricle Left ventricular chamber dimension is normal. Left ventricular systolic function is normal, estimated at 65-70%. There is mild concentric increased left ventricular wall thickness. The left ventricular diastolic function is grade I diastolic dysfunction. Right Ventricle Right ventricular chamber dimension is normal. Left Atria Left atrial chamber dimension is mildly enlarged. Right Atria Right atrial chamber dimension is normal. Aortic Valve The aortic valve is trileaflet. There is mild aortic valve sclerosis. There is trace aortic valve regurgitation. Pulmonic Valve The pulmonic valve is normal. Mitral Valve The mitral valve has normal leaflets. The mitral valve annulus is mildly calcified. Tricuspid Valve The tricuspid valve leaflets are normal. Pericardium/Pleural The pericardium appears normal. Aorta The aortic root size at the sinus of Valsalva is normal. Left Ventricular Outflow Tract Name Value Normal LVOT 2D LVOT Diameter 1.9 cm LVOT Doppler LVOT Peak Gradient 4 mmHg LVOT Mean Gradient 2 mmHg LVOT VTI 26 cm LVOT VTI/AV VTI Ratio 0.8 LVOT Stroke Volume 74 ml LVOT CO 3.9 l/min LVOT CI 2.2 l/min/m2 Pulmonic Valve Name Value Normal PV Doppler PV Peak Gradient 2 mmHg Mitral Valve Name Value Normal MV Doppler MV Decel [place] 301 cm/s2 MV PHT 70 ms MV Area (PHT) 3.2 cm2 4.0-5.0 MV Diastolic Function
== END 2024-02-25 17:25 | disposition home or self-care (01) ==
LOC: ANHIMU 15:39 → ANH3MEDSUR 18:54
PROVIDERS: Family Medicine; Nurse Practitioner; Admitting Provider Internal Medicine; PCP Internal Medicine; Visit Provider Internal Medicine
DX: I48.91 Unspecified atrial fibrillation (principal); E87.1 Hypo-osmolality and hyponatremia; R06.02 Shortness of breath; I10 Essential (primary) hypertension; Z87.891 Personal history of nicotine dependence
CPT/HCPCS: 36415; 80053; 80061; 83735; 84484; 85027; 93005; 93306; 97161; A9270; G0378

== ENCOUNTER 2025-02-23 14:02 | Outpatient (CLI) | payer OTHER, SELFPAY ==
--- OUTSIDE RECORDS SUMMARY | 2025-02-23 14:21 | XMS_ITS | Referral Summary ---
Author Organization [facility] Address [address] [place] [id number] Care Team Providers Care Cnc Supervisor Name Role Phone Clay Nails MD Primary Care Provider [phone] Encounters Date Type Department Care Team Description 12/16/2024 1:30 PM CDT Office Visit [facility] Cardiology at [address] [place] [address] Mckay Liang MD Paroxysmal atrial fibrillation (HCC) (Primary Dx) from Last 3 Months Allergies No known active allergies Medications multivitamin capsule Take 1 capsule by mouth daily Active coenzyme Q10 100 mg capsule Take 1 capsule (100 mg total) by mouth daily Active flecainide (TAMBOCOR) 50 mg tablet TAKE ONE TABLET BY MOUTH TWICE A DAY 60 tablet 2 09/19/2024 Active aspirin 81 mg enteric coated tablet Take 2 tablets (162 mg total) by mouth daily Active Active Problems Problem Noted Date Diagnosed Date Paroxysmal atrial fibrillation 03/26/2024 Back pain 05/23/2016 Social History Tobacco Use Types Packs/Day Years Used Date Smoking Tobacco: Former Cigarettes Q uit: 1966 Smokeless Tobacco: Never Tobacco Cessation:Counseling Given: Not Answered Alcohol Use Standard Drinks/Week Comments Yes 0 (1 standard drink = 0.6 oz pur e alcohol) Sex and Gender Information Value Date Recorded Sex Assigned at Not on file Legal Sex Male 12:51 PM CDT Gender Identity Not on file Sexual Orientation Not on file Last Filed Vital Signs Vital Sign Reading Time Taken Comments Blood Pressure 162/64 12/16/2024 1:32 PM CDT Pulse 55 12/16/2024 1:32 PM CDT Temperature 36.3 C (97.3 F) 03/14/2019 9:28 AM CDT Respiratory Rate 16 03/26/2024 9:46 AM CDT Oxygen Saturation 95% 12/16/2024 1:32 PM CDT Inhaled Oxygen Concentration - - Weight 62.6 kg (138 lb) 12/16/2024 1:32 PM CDT Height 175.3 cm (5' 9) 12/16/2024 1:32 PM CDT Body Mass Index 20.38 12/16/2024 1:32 PM CDT Plan of Treatment Not on file Insurance [facility] Address: [address] [address] [place] [address] [facility] MEDICARE ADVANTAGE [facility] Address: [address] [address] [place] [address] [facility] H[facility]/PPO Address: [address] [address] [place] [address] [facility] Address: [address] [address] [place] [address] Care Teams Cnc Supervisor Relationship Specialty Start Date End Date Clay Nails MD PCP - General 03/05/19
--- OUTSIDE RECORDS SUMMARY | 2025-02-23 14:21 | XMS_ITS | Clinical Summary ---
Author Organization [facility] Address [address] [place] [address] Care Team Providers Care It Trainee Name Role Phone Tuan Ruiz MD Unavailable [phone] Robert Lr MD Primary Care Provider [phone] Source Comments [facility],non-owned Affiliates and Associated Physician Practices is amultiple site organization consisting of ambulatory clinics and hospital sitesin [place], [place], [place] and [place]. This disclosure is being madepursuant to the Care Everywhere program and may not contain all information available regarding this patient. Last updated 18.[facility] [employer] Allergies No known active allergies Medications * Be aware that medications may not be up to date on this document. Alwaysverify current medications with the patient. oxyCODONE-acetamin ophen (PERCOCET) 5-325 MG tabletIndications: Other secondary scoliosis, thoracolumbar region 03/30/2016 Active aspirin (ASPIRIN) 325 MG tabletIndications: Other secondary scoliosis, thoracolumbar region Take 325 mg by mouth once daily Active Naproxen Sodium (ALEVE) 220 MGIndications:Othe r secondary scoliosis, thoracolumbar region Active Active Problems Problem Noted Date Diagnosed Date Back pain 05/23/2016 Family History Medical History Relation Name Comments Emphysema Father Alzheimer's Disease Mother Heart Disease Mother Relation Name Status Comments Father Mother Social History Tobacco Use Types Packs/Day Years Used Date Smoking Tobacco: Former Cigarettes Q uit: 05/23/1966 Smokeless Tobacco: Never Alcohol Use Standard Drinks/Week Comments Yes 0 (1 standard drink = 0.6 oz pur e alcohol) Sex and Gender Information Value Date Recorded Sex Assigned at Not on file Legal Sex Male 1:44 PM ZIGZAGGER Gender Identity Not on file Sexual Orientation Not on file Last Filed Vital Signs Vital Sign Reading Time Taken Comments Blood Pressure 122/81 05/23/2016 8:45 AM CDT Pulse 81 05/23/2016 8:45 AM CDT Temperature 36.3 C (97.3 F) 05/23/2016 8:45 AM CDT Respiratory Rate - - Oxygen Saturation - - Inhaled Oxygen Concentration - - Weight 71.9 kg (158 lb 9.6 oz) 05/23/2016 8:45 A M CDT Height 177.8 cm (5' 10) 05/23/2016 8:45 AM CDT Body Mass Index 22.76 05/23/2016 8:45 AM CDT Plan of Treatment Health Maintenance Due Date Last Done Comments DTAP/TDAP/TD VACCINES (1 - Tdap) 1957 PNEUMOCOCCAL VACCINE 50+ (1 of 1 - PCV) 1988 ZOSTER VACCINE (1 of 2) 1988 Respiratory Syncytial Virus (RSV) Vaccine Pt: or over 60 yrs (1 - 1-dose 75+ series) 2013 COVID-19 VACCINE ( - 2023-2 5 season) 2024 DEPRESSION SCREENING 07/23/2024 INFLUENZA VACCINE (#1) 2025 HEPATITIS B VACCINE Aged Out No longe r eligible based on patient's age to complete this topic HIB VACCINE Aged Out No longer eligi ble based on patient's age to complete this topic HPV VACCINE Aged Out No longer eligi ble based on patient's age to complete this topic MENINGOCOCCAL (Group B) VACC INE SHARED DECISION-MAKING Aged Out No longer eligibl e based on patient's age to complete this topic MENINGOCOCCAL GROUPS A/C/Y/W VACCINE Aged Out No longer eligible b ased on patient's age to complete this topic Insurance [employer] Care Teams It Trainee Relationship Specialty Start Date End Date Robert Lr MD [address] [place] [phone] PCP - General Family Medicine 05/23/16 Tuan Ruiz MD Orthopedic Surgery 05/16/16
--- OUTSIDE RECORDS SUMMARY | 2025-02-23 14:21 | XMS_ITS | Encounter Summary ---
Author Organization [facility] Address [facility] [place] [address] Care Team Providers Care Pro Shop Attendant Name Role Phone Clay Nails MD Primary Care Provider [phone] Encounter Details Date Type Department Care Team (Late st Contact Info) Description 12/28/2018 Abstract [facility] CONVERSION [address] [place] [address] , Generic ConversionMD Social History Tobacco Use Types Packs/Day Years Used Date Smoking Tobacco: Never Assessed Sex and Gender Information Value Date Recorded Sex Assigned at Male 09/15/2024 1:47 PM WEB APPLICATION DEV SPECIALIST Legal Sex Male 10:10 PM WEB APPLICATION DEV SPECIALIST Gender Identity Not on file Sexual Orientation Not on file documented as of this encounter Plan of Treatment Not on file documented as of this encounter Visit Diagnoses Not on filedocumented in this encounter Care Teams Pro Shop Attendant Relationship Specialty Start Date End Date Clay Nails MD [address] [place] [address] PCP - General INTERNAL MEDICINE 05/21/19 documented as of this encounter
--- OUTSIDE RECORDS SUMMARY | 2025-02-23 14:21 | XMS_ITS | Clinical Summary ---
Author Organization [facility] Address [address] [place] [phone] Care Team Providers Care Senior Commissions Analyst Name Role Phone Clay Nails MD Primary Care Provider [phone] Allergies No known active allergies Medications multivitamin [...] Paroxysmal atrial fibrillation 03/26/2024 Back pain 05/23/2016 Encounters Date Type Department Care Team Description 12/16/2024 1:30 PM CDT Office Visit [facility] Cardiology at [address] [place] [address] Mckay Liang MD Paroxysmal atrial fibrillation (HCC) (Primary Dx) from Last 3 Months Surgical History Surgery Date Site/Laterality Comments BACK SURGERY LUMBAR PUNCTURE WO INJECTION, DIAGNOSTIC 09/04/2022 N/A Medical History Medical History Date Comments Arthritis Cancer (HCC) Pneumonia Atrial fibrillation (HCC) Family History Medical History Relation Name Comments Diabetes Brother Heart disease Brother Deep vein thrombosis Father Heart disease Mother Hypertension Mother Mental illness Mother Relation Name Status Comments Brother Father Mother Social History Tobacco Use Types [...] on file Sexual Orientation Not on file Obstetrics History Last Filed Vital Signs Vital Sign Reading [...] 12/16/2024 1:32 PM CDT Plan of Treatment Health Maintenance Due Date Last Done Comments Depression Screening 1938 Fall Risk Assessment 1938 DTaP/Tdap/Td Vaccine (1 - Tdap) 1949 Hepatitis B Screening 1956 Pneumococcal vaccine 65+ (1 of 1 - PCV) 1988 Zoster Vaccine (1 of 2) 1988 Well Visit 65+ 2003 Influenza Vaccine (#1) 2025 05/01/2017 Insurance [facility] MEDICARE ADVANTAGE Care Teams Senior Commissions Analyst Relationship Specialty Start Date End Date Clay Nails MD PCP - General 03/05/19
--- OUTSIDE RECORDS SUMMARY | 2025-02-23 14:21 | XMS_ITS | Clinical Summary ---
Author Organization [facility] Address [facility] [place] [address] Care Team Providers Care Lot Worker Name Role Phone Clay Nails MD Primary Care Provider [phone] Allergies No known active allergies Medications aspirin EC 81 MG tablet Take 81 mg by mouth daily. Active coenzyme Q-10 100 MG capsule Take 100 mg by mouth daily. Active lisinopril 20 MG tablet Take 20 mg by mouth daily. 08/14/2021 Active meloxicam 15 MG tablet 06/29/2021 Active Multiple Vitamin (MULTIVITAMIN) capsule Take 1 capsule by mouth daily. Active Naproxen Sodium 220 MG Cap Active Vitamin D3, cholecalciferol , 2000 UNIT Tab tablet Take 2,000 Units by mouth daily. Active acetaminophen (TYLENOL) 500 MG tablet Take 500 mg by mouth every 6 (six) hours as needed for Pain. Active Social History Tobacco Use Types Packs/Day Years Used Date Smoking Tobacco: Former Smokeless Tobacco: Never Tobacco Cessation:Counseling Given: Not Answered Alcohol Use Standard Drinks/Week Comments Yes 11.7 (1 standard drink = 0.6 oz pure alcohol) GLASS OF WINE DAILY PHQ-2 Answer Date Recorded PHQ-2 Score - If the patient scores above 3, please move on to questions 3-9 0 04/18/2022 Sex and Gender Information Value Date Recorded Sex Assigned at Male 09/15/2024 1:47 PM DIRECTOR OF VENDOR MANAGEMENT Legal Sex Male 10:10 PM DIRECTOR OF VENDOR MANAGEMENT Gender Identity Not on file Sexual Orientation Not on file Last Filed Vital Signs Vital Sign Reading Time Taken Comments Blood Pressure 135/72 09/04/2022 3:15 PM DIRECTOR OF VENDOR MANAGEMENT Pulse 70 09/04/2022 3:15 PM DIRECTOR OF VENDOR MANAGEMENT Temperature 36.5 C (97.7 F) 09/04/2022 3:15 PM DIRECTOR OF VENDOR MANAGEMENT Respiratory Rate 16 09/04/2022 3:15 PM DIRECTOR OF VENDOR MANAGEMENT Oxygen Saturation 98% 09/04/2022 3:15 PM DIRECTOR OF VENDOR MANAGEMENT Inhaled Oxygen Concentration - - Weight 67.4 kg (148 lb 9.4 oz) 09/04/2022 9:30 A M DIRECTOR OF VENDOR MANAGEMENT Height 177.8 cm (5' 10) 09/04/2022 9:30 AM DIRECTOR OF VENDOR MANAGEMENT Body Mass Index 21.32 09/04/2022 9:30 AM DIRECTOR OF VENDOR MANAGEMENT Plan of Treatment Health Maintenance Due Date Last Done Comments DTaP, Tdap and Td Vaccines ( 1 - Tdap) 1957 Pneumococcal Vaccine: 50+ Ye ars (1 of 1 - PCV) 1988 Zoster Vaccines (1 of 2) 1988 RSV Immunization or 60+ Years (1 - 1-dose 75+ series) 2013 COVID-19 Vaccine (1 - 2023-2 5 season) 2024 Meningococcal B Vaccine Aged Out No l onger eligible based on patient's age to complete this topic Meningococcal Vaccine Aged Out No soumya jennifer eligible based on patient's age to complete this topic RSV Immunizations Under 20 Months Aged Out No longer eligible based on patient's age to complete this topic Insurance MEDICARE PART A [facility] Care Teams Lot Worker Relationship Specialty Start Date End Date Clay Nails MD [address] [place] [address] PCP - General INTERNAL MEDICINE 05/21/19
--- OUTSIDE RECORDS SUMMARY | 2025-02-23 14:21 | XMS_ITS | Clinical Summary ---
Author Organization [facility] Address [address] [place] [phone] Phone Care Team Providers Care Director Of Perioperative Services Name Role Phone Clay Nails MD Primary Care Provider Social History Tobacco Use Types Packs/Day Years Used Date Smoking Tobacco: Never Assessed Sex and Gender Information Value Date Recorded Sex Assigned at Not on file Legal Sex Male 11:03 AM CDT Gender Identity Not on file Sexual Orientation Not on file Plan of Treatment Health Maintenance Due Date Last Done Comments Hepatitis C Virus (HCV) Screening 1940 TdaP Immunization 1940 Pneumococcal Immunization (5 0+ years) (1 of 1 - PCV) 1988 Zoster Immunization (1 of 2) 1988 Respiratory Syncytial Virus (RSV) Immunization (Adult) (1 - 1-dose 75+ series) 2013 SARS-COV-2 Immunization ( season) 2024 07/04/2021, 11/12/2020, 10/15/2020 Influenza Immunization (#1) 2025 05/01/2017 Hepatitis B Immunization Aged Out No longer eligible based on patient's age to complete this topic Human Papillomavirus (HPV) Immunization Aged Out No longer eligible b ased on patient's age to complete this topic Meningococcal Immunization (ACWY) Aged Out No longer eligible b ased on patient's age to complete this topic Rotavirus Immunization Aged Out No lo nger eligible based on patient's age to complete this topic Insurance Care Teams Director Of Perioperative Services Relationship Specialty Start Date End Date Clay Nails MD [address] [place] [address] PCP - General Internal Medicine 10/28/18
[2025-02-23 14:39] LABS: Add Urine Microscopic? NO; Appearance Urine Clear (Clear); Glucose Urine UA Negative (Negative); Leukocyte Esterase Ur Negative (Negative); Nitrate Urine Negative (Negative); Specific Grav Ur 1.010 (1.010-1.020)
[2025-02-23 15:42] LABS: Prostate Specific Antigen 0.7 ng/mL (< OR = 4.0)
== END 2025-02-23 14:03 | disposition home or self-care (01) ==
LOC: CHSLAB 14:10
PROVIDERS: PCP Internal Medicine; Visit Provider Urology
DX: C61 Malignant neoplasm of prostate (principal); N50.82 Scrotal pain
CPT/HCPCS: 36415; 81003; 84153